=== PATIENT | male | born 1960 | race Caucasian/White ===

== ENCOUNTER → 2020-09-23 | Outpatient (CLI) | payer OTHER ==
[2020-09-23 10:17] LABS: Basophils % (A) 1 %; Eosinophils # (A) 0.2 k/uL (0-0.7); Eosinophils % (A) 3 %; HCT 47.7 % (39.0-53.0); HGB 16.5 gm/dL (13.0-17.5); Lymphocytes # (A) 1.8 k/uL (1.0-4.8); Lymphocytes % (A) 29 %; MCH 31.5 pg (25.0-35.0); MCHC 34.7 g/dL (31.0-37.0); MCV 90.7 fL (80.0-100.0); Mean Platelet Volume 6.9; Monocytes # (A) 0.4 k/uL (0-1.0); Monocytes % (A) 6 %; Neutrophils # (A) 3.7 k/uL (1.3-7.7); Neutrophils % (A) 60 %; Platelet Count 262 k/uL (150-450); RBC 5.26 m/uL (4.30-5.90); RDW 13.5 % (11.5-15.5); WBC 6.2 k/uL (3.8-10.6)
[2020-09-23 10:26] LABS: Potassium 4.8 mmol/L (3.5-5.1)
[2020-09-23 10:28] LABS: Prothrombin Time 11.1 sec (9.0-12.0)
== END | disposition home or self-care (01) ==
LOC: LABPAT 08:33
PROVIDERS: ATTEND Orthopaedic Surgery
DX: Z01.812 Encounter for preprocedural laboratory examination (principal); M17.12 Unilateral primary osteoarthritis, left knee
CPT/HCPCS: 36415; 80051; 85025; 85610; 93005

== ENCOUNTER 2020-10-06 05:56 | Observation (INO) | payer OTHER ==
[2020-09-30 13:35] VITALS: BMI 31.4
--- NOTE | 2020-10-05 20:34 | HP ---
HISTORY AND PHYSICAL DATE OF SURGERY: 10/06/2020 Shon Brian is a 60-year-old gentleman seen with symptomatic left knee osteoarthritis. We discussed options for treatment. He elected to proceed with left total knee arthroplasty. Consent was obtained. PAST MEDICAL HISTORY: Noncontributory. PAST SURGICAL HISTORY: Left knee arthroscopy, herniorrhaphy. DAILY MEDICATIONS: Advil. ALLERGIES: NONE. SOCIAL HISTORY: He denies current tobacco use. PHYSICAL EVALUATION OF THE LEFT KNEE: His range of motion is negative 3/4 to 95. Mild effusion. Tenderness along the medial joint line. Crepitus, medial and patellofemoral compartments and range of motion. Pain with patellofemoral compression. Ligaments stable. Hip rotation without pain. Distal neurovascular exam is intact. RADIOGRAPHS: Radiographs of the left knee reveal severe osteoarthritic changes. IMPRESSION: Left knee osteoarthritis. PLAN: Left total knee arthroplasty. MMODL / IJN: [id number] /
[~2020-10-06 05:56] MED LIST: ACETAMINOPHEN TAB 500 MG TAB PO PRN; DEXAMETHASONE SOD PHOSPHATE 4 MG/ML 1 ML VIAL IV ONE; LACTATED RINGERS 1,000 ML IV SCH; MELOXICAM 7.5 MG TAB PO PRN; MIDAZOLAM 2 MG/2 ML VIAL IV PRN; ONDANSETRON 4 MG/2 ML VIAL IVP ONE; ROPIVACAINE 246.25 MG, EPINEPHrine 0.5 MG, KETOROLAC 30 MG, cloNIDine HCL/PF 80 MCG, WA... MISCELLANE PRN; TRANEXAMIC ACID 1,000 MG in SODIUM CHLORIDE 0.9% 100 ML IVPB PRN
[2020-10-06] MEDS ORDERED: ROPIVACAINE/EPI/CLONIDINE/KET 50 ML SYRINGE MISCELLANE PRN (06:00)
[2020-10-06] MEDS ORDERED: LIDOCAINE 1% (10MG/ML) FOR IV START INTRADERMA ONE (06:35)
[2020-10-06] MEDS ORDERED: ePHEDrine SULFATE/0.9% NACL/PF 50 MG/5 ML SYRINGE IV ONE (07:28)
[2020-10-06] MEDS ORDERED: SODIUM CHLORIDE 0.9% 100 ML BAG ONE (07:28)
[2020-10-06] MEDS ORDERED: TRANEXAMIC ACID 1,000 MG/10 ML VIAL ONE (07:28)
[2020-10-06] MEDS ORDERED: fentaNYL (PF) 50 MCG/ML 2 ML AMP ONE (07:28)
[2020-10-06] MEDS ORDERED: PROPOFOL 10 MG/ML 20 ML VIAL IV ONE (07:28)
[2020-10-06] MEDS ORDERED: SUCCINYLCHOLINE CHLORIDE VIAL 200 MG/10 ML VIAL IV ONE (07:28)
[2020-10-06] MEDS ORDERED: HYDROmorphone (PF) 1 MG/ML ONE (07:28)
[2020-10-06] MEDS ORDERED: LIDOCAINE 1% INJ 10MG/ML (20 ML MDV) ONE (07:28)
[2020-10-06] MEDS ORDERED: MIDAZOLAM 2 MG/2 ML VIAL ONE (07:28)
[2020-10-06] MEDS ORDERED: LACTATED RINGERS 1,000 ML IV ONE (08:17)
[2020-10-06 09:27] LABS: HCT 37.8 % (39.0-53.0); HGB 13.7 gm/dL (13.0-17.5); MCH 32.4 pg (25.0-35.0); MCHC 36.1 g/dL (31.0-37.0); MCV 89.9 fL (80.0-100.0); Mean Platelet Volume 8.6; Platelet Count 266 k/uL (150-450); RBC 4.21 m/uL (4.30-5.90); RDW 13.4 % (11.5-15.5); WBC 10.5 k/uL (3.8-10.6)
[2020-10-06] MEDS ORDERED: HYDROmorphone 1 MG/ML 1 ML SYRINGE IVP PRN (09:34)
[2020-10-06] MEDS ORDERED: ONDANSETRON 4 MG/2 ML VIAL IVP PRN (09:34)
[2020-10-06] MEDS ORDERED: hydrOXYzine pamoate 25 MG CAP PO PRN (09:34)
[2020-10-06] MEDS ORDERED: NALOXONE 0.4 MG/ML 1 ML VIAL IV PRN (09:34)
[2020-10-06] MEDS ORDERED: HYDROmorphone 0.2 MG/1 ML SYRINGE IVP PRN (09:34)
[2020-10-06] MEDS ORDERED: HYDROcodone/APAP 5-325MG 1 EACH TAB PO PRN (09:34)
--- NOTE | 2020-10-06 09:34 | P.OP ---
Date of Procedure: 10/06/20 Preoperative Diagnosis: Left knee osteoarthritis Postoperative Diagnosis: Left knee osteoarthritis Procedure(s) Performed: Left total knee arthroplasty Implants: 1. Depuy attune size 8 left cruciate retaining cemented femur 2. Depuy attune size 8 fixed bearing cemented tibial baseplate 3. Depuy attune size a fixed bearing cruciate retaining 12 mm polyethylene tibial insert 4. Depuy attune 41 mm all polyethylene cemented patella Anesthesia: GETA, regional (Adductor canal catheter), local Surgeon: Wander Garcia Professor Of Chemistry #1: Enrique Hurley Estimated Blood Loss (ml): 120 Pathology: other (Bone) Condition: stable Disposition: PACU Indications for Procedure: 60-year-old gentleman who was seen with symptomatic left knee osteoarthritis. After treatment options were discussed with him, he elected to proceed with t otal knee arthroplasty. Operative Findings: See description of procedure Description of Procedure: Patient was taken to the operative suite after having an adductor canal catheter placed by the department of anesthesia. Patient underwent a roll anesthetic by the department of anesthesia. Patient was given preoperative IV intake antibiotics and TXA. A well-padded tourniquet was placed about the left lower extremity. The lower extremity was then prepped and draped in the normal sterile orthopedic fashion. The extremity was elevated, a tourniquet was insufflated to 300. A standard anterior incision was made sharply through skin. Dissection was taken down through the subcutaneous soft tissues down to the extensor mechanism. A medial arthrotomy was performed, patella was everted and knee was flexed. There was advanced osteoarthritis noted. I introduced my distal intramedullary femoral drill. I then introduced the distal femoral cutting jig. Anthony MARTINEZ secured the cutting jig with 2 pins. I held retractors in position while Anthony MARTINEZ performed the distal femoral resection through the guide area we now removed her distal femoral cutting guide. We now placed our 4-in-1 femoral cutting block and positioned and it was secured with 2 pins by Anthony MARTINEZ while I held the block in position. The distal femoral finishing was now completed. A proximal tibial cutting guide was positioned. I held the guide in the appropriate position with both hands well Anthony MARTINEZ inserted stabilizing pins into the guide. Proximal tibial cut was made. We now placed a trial femoral component into position, along with an appropriate size tibial tray and insert. We now took the knee through range of motion and had full extension good flexion and good overall soft tissue balance noted. The patella was everted and stabilized with 2 towel clips held by Anthony MARTINEZ while I performed a flush with patellar quad tendon utilizing a fresh sawblade. We templated the patella, appropriate drill holes were made. An appropriate trial patella was positioned, knee was taken through full range of motion with the patella tracking very nicely. The trial patella was removed. Drill holes were made through the femoral component. All trial components were removed after marking off the appropriate rotation of the tibia. Retractors were now positioned along the proximal tibia. An appropriate keel punch was made with the appropriate size tibial guide by myself on Anthony MARTINEZ assisted by holding retractors. At this point appropriate size implants were chosen and opened. The joint was irrigated copiously with pulse lavage mechanical irrigation. The posterior capsule was infiltrated with local analgesic. The wound was irrigated with pulse lavage mechanical irrigation. We mixed antibiotic methylmethacrylate. We placed the knee into flexion. We placed multiple retractors assisted by Anthony MARTINEZ to expose the proximal tibia. Once the methyl methacrylate was ready, the tibial component was cemented into place removing any excess methylmethacrylate form by both myself and Anthony MARTINEZ. The femoral component was cemented into place removing the removing any excess methylmethacrylate performed by both myself and Anthony MARTINEZ. We then inserted the appropriate size polyethylene tibial insert. We made sure that it was locked into position. We took the knee into full extension, and then back in a flexion making sure we had removed any excess methylmethacrylate. The patellar component was then cemented down and secured with clamp. Excess methylmethacrylate removed. We kept the knee in full extension, patellar clamp in position until methylmethacrylate had hardened. Once it had hardened the patellar clamp was removed. The knee was taken through full range of motion. The patella tracked nicely. There was good soft tissue balancing. The tourniquet was now released. Additional hemostasis was achieved via electrocautery. There was significant bleeding occurring in we did have to remove the polyethylene component to perform additional cauterization the posterior lateral capsule area where noted a significant amount of bleeding. I was able stabilize it. The polyethylene was reinserted. I used some powder Surgicel throughout the knee to again help with her hemostasis. At this point appeared we had good hemostasis. A second gram of TXA was given. The wound again was irrigated with pulse lavage mechanical irrigation. The superficial soft tissues were infiltrated local analgesic. The extensor mechanism was repaired with Vicryl. We checked the repair with range of motion and it was stable. The subcutaneous soft tissues were repaired with Vicryl in layers. The skin was approximated with pernio/Dermabond. Sterile dressings were applied followed by loose web roll and Konrad bandage. The patient was transferred to a bed, and taken to recovery in stable and satisfactory condition. Anthony MARTINEZ assisted with this complex procedure.
[2020-10-06] MEDS: HYDROmorphone 0.5 MG/0.5 ML SYRINGE IVP PRN ×6 (10:07→23:41)
[2020-10-06] MEDS: hydrALAZINE HCL 20 MG/ML 1 ML VIAL IV ONE ×2 (10:20→10:40)
[2020-10-06] MEDS ORDERED: ROPIVACAINE 0.2%-NS ON-Q PUMP 1,090 MG, EMPTY PAIN BALL 1 EACH MISCELLANE PRN (10:27)
--- NOTE | 2020-10-06 10:27 | P.ANPRN ---
Procedure Note - Anesthesia - Nerve Block Performed Left Adductor Canal Infusion Time Out Performed: Yes Date of Procedure: 10/06/20 Procedure Start Time: 06:49 Procedure Stop Time: 07:04 Location of Patient: PreOp Indication: Acute Post-Operative Pain, Requested by Surgeon Sedation Type: Sedate with meaningful contact maintained Preparation: Sterile Prep, Sterile Dressing Position: Supine Catheter: Indwelling Needle Types: Pajunk Needle Gauge: 21 Ultrasound used to visualize needle placement: Yes Ultrasound used to observe medication spread: Yes Blood Aspirated: No Pain Paresthesia on Injection Noted: No Resistance on Injection: Normal Image Stored and Saved: Yes Events: Uneventful and Well Tolerated (ropi .5% 20cc plus dexamethasone 4mg)
[2020-10-06] MEDS ORDERED: METOPROLOL TARTRATE 5 MG/5 ML VIAL IVP ONE (10:55)
--- NOTE | 2020-10-06 11:02 | XR ---
EXAMINATION TYPE: XR knee limited LT DATE OF EXAM: 10/06/2020 COMPARISON: None HISTORY: Postop knee replacement TECHNIQUE: 2 view left knee FINDINGS: Tibial femoral components in place. Surgical skin bereket are present anteriorly. Postsurgi estrada changes are within soft tissues. No acute fractures or dislocations are evident. IMPRESSION: 1. No acute fractures post knee replacement.
[2020-10-06] MEDS: MEPERIDINE 50 MG/ML SYRINGE IVP ONE ×2 (11:18→11:42)
[2020-10-06 13:20] LABS: Band Neutrophils % 1 %; Lymphocytes # (M) 0.63 k/uL (1.0-4.8); Monocytes # (M) 0.11 k/uL (0-1.0); Neutrophils % (M) 92 %; Nucleated Red Blood Cells 0 /100 WBC (0-0); Total Cells Counted 100
[2020-10-06] MEDS: LACTATED RINGERS 1,000 ML IV SCH ×2 (14:39→20:11)
[2020-10-06] MEDS ORDERED: SENNOSIDES-DOCUSATE SODIUM 1 EACH TAB PO SCH (21:00)
[2020-10-07] MEDS: HYDROcodone/APAP 7.5-325MG 1 EACH TAB PO PRN ×2 (03:58→10:25)
[2020-10-07] MEDS: LACTATED RINGERS 1,000 ML IV SCH ×2 (05:03→07:03)
[2020-10-07] MEDS ORDERED: ENOXAPARIN 30 MG/0.3 ML SYRINGE SQ SCH (06:00)
[2020-10-07 07:33] VITALS: BP 177/99; PULSE 89; RESP 18; TEMP 98
--- NOTE | 2020-10-07 07:38 | P.PN ---
Progress Note - Text 10/07/20 711am 60-year-old male status post total knee replacement by Dr. Brumfield. Patient has an On-Q pump for postop pain control with the solution running at 8 mL an hour with a VAS of 4. His pain score varies with ambulation dressing clean dry and intact. Plan to continue On-Q pump infusion
[2020-10-07 08:52] LABS: Basophils # (A) 0.01 X 10*3/uL (0.00-0.10); Basophils % (A) 0.1 %; Eosinophils # (A) 0.01 X 10*3/uL (0.04-0.35); Eosinophils % (A) 0.1 %; HCT 38.1 % (39.6-50.0); HGB 12.8 g/dL (13.0-17.0); Lymphocytes # (A) 1.08 X 10*3/uL (0.90-5.00); Lymphocytes % (A) 7.4 %; MCH 30.3 pg (27.0-32.0); MCHC 33.6 g/dL (32.0-37.0); MCV 90.3 fL (80.0-97.0); Monocytes # (A) 1.43 X 10*3/uL (0.20-1.00); Monocytes % (A) 9.7 %; Neutrophils # (A) 12.09 X 10*3/uL (1.80-7.70); Neutrophils % (A) 82.2 %; Platelet Count 269 X 10*3/uL (140-440); RBC 4.22 X 10*6/uL (4.40-5.60); RDW 13.3 % (11.5-14.5); WBC 14.69 X 10*3/uL (4.50-10.00)
--- NOTE | 2020-10-07 10:05 | P.PN ---
Subjective Progress Note Date: 10/07/20 Principal diagnosis: Left total knee arthroplasty Status post left total knee arthroplasty Postop-day 1 Upon entering room patient was sitting comfortably in chair next to bed. P atient was resting with legs elevated. Patient says he is feeling well today. Patient has been up and walking with a walker. Patient rates his pain as 6 out of 10, when pain medication wears off. Patient has passed gas, but has not had bowel movement yet patient was about to eat breakfast. Objective - Vital Signs Vital signs: Vital Signs Temp 98.0 F 10/07/20 07:33 Pulse 89 10/07/20 07:33 Resp 18 10/07/20 07:33 BP 177/99 10/07/20 07:33 Pulse Ox 95 10/07/20 07:33 Intake & Output 10/06/20 10/07/20 10/07/20 18:59 06:59 18:59 Intake Total 1850 Output Total 121 Balance 1729 Weight 110 kg Intake: IV 1850 Output: Urine 1 Estimated Blood Loss 120 Other: Voiding Method Toilet # Voids 3 1 # Bowel Movements 0 - Exam : Incision is clean, dry, and intact. The silver foam tape is in good condition. There is minimal soft tissue swelling and ecchymosis surrounding the medial and lateral aspects of the incision. Calf is soft, no tenderness with palpation. Plantar flexion, dorsiflexion, EHL, FHL are intact. Sensory exam to light touch throughout the extremity is intact, dorsal pedis pulses 2+. - Labs CBC & Chem 7: 10/07/20 05:46 Labs: Abnormal Lab Results - Last 24 Hours (Table) 10/06/20 10/07/20 Range/Units 09:14 05:46 WBC 14.69 H (4.50-10.00) X 10*3/uL RBC 4.22 L (4.40-5.60) X 10*6/uL Hgb 12.8 L (13.0-17.0) g/dL Hct 38.1 L (39.6-50.0) % Immature Gran # 0.07 H (0.00-0.04) X 10*3/uL Neutrophils # 12.09 H (1.80-7.70) X 10*3/uL Neutrophils # (Manual) 9.70 H (1.3-7.7) k/uL Lymphocytes # (Manual) 0.63 L (1.0-4.8) k/uL Monocytes # 1.43 H (0.20-1.00) X 10*3/uL Eosinophils # 0.01 L (0.04-0.35) X 10*3/uL Assessment and Plan Assessment: Left total knee arthroplasty Plan: Assessment: Postoperative day 1 status post left total knee arthroplasty Plan: 1. Continue with medical management. 2. Continue with current pain medication [place] 5 mg/325 mg. 3. Continue with physical therapy, including gait/stair training. 4. Continue with aspirin for DVT prophylaxis. 5. Use stool softener as needed 6. Discharge planning. 7. Anticipated discharge [10/07/2020. Time with Patient: Less than 30
--- NOTE | 2020-10-07 10:07 | P.DS ---
Providers Date of admission: 10/06/20 23:55 Expected date of discharge: 10/07/20 Attending physician: Wander Garcia Consults: 10/06/20 09:34 Consult Physician Routine Consulting Provider: Zack Nolasco Consult Reason/Comments: Medical management Do you want consulting provider notified?: Yes Primary care physician: Jt Keenan [place] [facility] Course: Date of admission: 10/06/2020 Date of discharge: 10/07/2020 Admission diagnosis: Left total knee arthroplasty Discharge diagnosis: Same Attending physician: Dr. Garcia Surgical procedures: Left total knee arthroplasty Brief history: Patient is a 60-year-old male with a history of progressive primary left knee osteoarthritis. At this point patient has failed conservative treatment measures and has opted to proceed with a elective left total knee arthroplasty. Hospital course: Details of patient's surgery can be found in operative report. Patient tolerated the procedure well and was subsequently transported to orthopedic floor. Patient's orthopeidc and medical care was provided daily. Patient had daily laboratory tests performed for evaluation of overall blood counts. Patient had daily physical therapy to include strengthening range of motion as well as education with walker ambulation. Patient was treated with Xarelto for their postoperative DVT prophylaxis during their inpatient stay. Patient was noted to have a relatively uneventful postoperative course. Patient reported satisfactory pain control with oral pain medications by postoperative day 1. Patient showed satisfactory progress with physical therapy. Patient moved steadily through the program and had no difficulty meeting the goals by postoperative day 1. Given patient's otherwise satisfactory course and having met physical therapy goals, plan is to discharge patient home on postoperative day 1. Discharge condition/disposition: Patient will be discharged on in stable cond ition. Discharge medications: Instructions are given on resumption of patient's normal daily medications per primary care recommendation, in addition patient will be prescribed [place] 7.5 mg/325 mg, Colace 100 mg, aspirin 81 mg. Discharge instructions: 1. Wound care and infection precautions, keep incision dry and covered while showering, no lotions, creams, moisturizers. No soaking, tubs, pools, hottubs. Do not scrub over the incision. 2. Weight-bear as tolerated with walker / cane until follow-up. 3. Ice and elevate when necessary. Do not exceed 20 minutes per hour with ice pack. 4. Utilize compression sleeve until seen at first follow up appointment. 5. Visiting nursing care. 6. Home physical therapy including home CPM. 7. Pain meds and anticoagulants per prescription. 8. Pain medication has potential to cause constipation. Increase oral fluid and fiber intake. Contact primary care provider if you have not had a bowel movement within 48 hours after discharge 9. No anti-inflammatory medication until discussed at first post operative visit, this including Motrin, Aleve, Mobic, Diclofenac,. 10. Follow up in office at 2 weeks postop with Anthony Hurley PA-C / Daniele Gifford PA-C 11. Follow up with your primary care doctor 7-10 days after discharge. 12. Contact [facility] with any questions, . Assessment: Left total knee arthroplasty Patient Condition at Discharge: Good Plan - Discharge Summary Discharge Rx Participant: Yes New Discharge Prescriptions: New Aspirin [Adult Low Dose Aspirin EC] 81 mg PO BID #60 tablet. Docmickeyte [Colace] 100 mg PO DAILY #30 capsule HYDROcodone/APAP 7.5-325MG [[place] 7.5] 1 each PO Q6HR PRN #42 tab PRN Reason: Pain Ferrous Sulfate [Iron (65 MG Elemental)] 325 mg PO BID #30 tab Discharge Medication List Aspirin [Adult Low Dose Aspirin EC] 81 mg PO BID #60 tablet. 10/07/20 [Rx] Docusate [Colace] 100 mg PO DAILY #30 capsule 10/07/20 [Rx] Ferrous Sulfate [Iron (65 MG Elemental)] 325 mg PO BID #30 tab 10/07/20 [Rx] HYDROcodone/APAP 7.5-325MG [[place] 7.5] 1 each PO Q6HR PRN #42 tab 10/07/20 [Rx] Follow up Appointment(s)/Referral(s): Enrique Hurley PAC [PHYSICIAN CREDIT PORTFOLIO MANAGER] - 2 Weeks Activity/Diet/Wound Care/Special Instructions: Orthopedic Discharge Instructions: 1. Wound care and infection precautions, keep incision dry and covered while showering, no lotions, creams, moisturizers. No soaking, pools, hot tubs. Do not scrub over incision. 2. Weight-bear as tolerated with walker / cane until follow-up. 3. Ice and elevate when necessary. Do not exceed 20 minutes per hour with ice pack. 4. Utilize compression sleeve until seen at first follow up appointment. 5. Pain meds and anticoagulants per prescription. 6. Pain medication has potential to cause constipation. Increase oral fluid and fiber intake. Contact primary care provider if you have not had a bowel movement within 48 hours after discharge. 7. No anti-inflammatory medication until discussed at first post operative visit, this including Motrin, Aleve, Mobic, Diclofenac, . 8. Follow up in office at 2 weeks postop with Anthony Hurley PA-C / Dainele Gifford PA-C 9. Follow up with your primary care doctor 7-10 days after discharge. 10. Contact [facility] with any questions, . Keep silver foam dressing on for 7 days. wrap foam dressing in plastic bag or Saran wrap while showering. Foam dressing may be removed after 7 days Discharge Disposition: HOME WITH HOME HEALTH SERVICES
[2020-10-07] MEDS ORDERED: LISINOPRIL-HCTZ 10-12.5 MG 1 EACH TAB PO STA (11:19)
--- NOTE | 2020-10-07 21:35 | P.CONS ---
History of Present Illness - Reason for Consult Consult date: 10/07/20 Medical management Requesting physician: Wander Garcia - Chief Complaint Left knee surgery - History of Present Illness Consultation: This is a very pleasant 60-year-old patient of Dr. Mclaughlin. Patient has been remarkable good health. He has had progressive symptoms of arthritis in the left knee. Ordered repeat her diet. Getting worse. Worse with activity. Better with resting. Patient's tried different conservative measures. It is somewhat localized to the left knee. Finally decision was made to proceed with surgical repair. Patient is undergone left total knee arthroplasty. This morning feeling better. Pain is controlled. No nausea vomiting. Did tolerate his breakfast. No chest pain or shortness of breath. Patient noted to have blood pressure running on the higher side. Does not know what it normally runs. Review of systems: GEN.: None EYES: None HEENT: None NECK: None RESPIRATORY: None CARDIOVASCULAR: None GASTROINTESTINAL: None GENITOURINARY: None MUSCULOSKELETAL: Joint pains including right ankle from previous fractures] LYMPHATICS: None HEMATOLOGICAL: None PSYCHIATRY: None NEUROLOGICAL: None Past medical history to include: Arthritis Social history: Lives alone. Does construction work. Does not smoke. Alcohol occasionally. Family history: Reviewed, noncontributory to presentation Physical examination: VITAL SIGNS: 98, 89, 18, 1 77 x 99, 95% room air GENERAL: BMI 31.1, sitting up, comfortable. EYES: Pupils equal. Conjunctiva normal. HEENT: External appearance of nose and ears normal, oral cavity grossly normal. NECK: JVD not raised; masses not palpable. HEART: First and second heart sounds are normal; no edema. LUNGS: Respiratory rate normal; clear to auscultation. ABDOMEN: Soft, nontender, liver spleen not palpable, no masses palpable. PSYCH: Alert and oriented x3; mood and affect normal MUSCULAR skeletal: Dressing over the left knee. NEUROLOGICAL: Cranial nerves grossly intact; no facial asymmetry, power and sensation grossly intact. LYMPHATICS: No lymph nodes palpable in the axilla and neck INVESTIGATIONS, reviewed in the clinical context: WBC 14.6 hemoglobin 12.8 platelets 269 Assessment and plan: -Left total knee arthroplasty. Pain control. On aspirin for DVT prophylaxis -Primary osteoarthritis -Essential hypertension, uncontrolled, new diagnosis. We'll start the patient on lisinopril hydromorphone thiazide. 10/12.5. Patient educated to check his blood pressure every morning and follow-up as his PCP. Patient to follow-up with his family doctor. Care was discussed Thank you Dr. Pena Past Medical History Past Medical History: No Reported History History of Any Multi-Drug Resistant Organisms: None Reported Past Surgical History: Hernia Repair Additional Past Surgical History / Comment(s): arthroscopy lt knee, hernia surgery Past Anesthesia/Blood Transfusion Reactions: No Reported Reaction Past Psychological History: No Psychological Hx Reported Smoking Status: Never smoker Past Alcohol Use History: Occasional Past Drug Use History: None Reported - Past Family History Mother Family Medical History: No Reported History Medications and Allergies Home Medications Medication Instructions Recorded Confirmed Type Aspirin [Adult Low Dose Aspirin EC] 81 mg PO BID #60 tablet. 10/07/20 Rx Docusate [Colace] 100 mg PO DAILY #30 capsule 10/07/20 Rx Ferrous Sulfate [Iron (65 MG 325 mg PO BID #30 tab 10/07/20 Rx Elemental)] HYDROcodone/APAP 7.5-325MG [[facility] 1 each PO Q6HR PRN #42 tab 10/07/20 Rx 7.5] Lisinopril-Hctz 10-12.5 mg 1 each PO HS #30 tab 10/07/20 Rx [Zestoretic 10-12.5] Allergies Allergy/AdvReac Type Severity Reaction Status Date / Time No Known Allergies Allergy Verified 10/06/20 06:27 Physical Exam Vitals: Vital Signs Temp Pulse Resp BP BP Pulse Ox 10/07/20 07:33 98.0 F 89 18 177/99 95 10/07/20 02:25 97.7 F 95 17 168/72 94 L 10/06/20 19:40 16 10/06/20 19:15 97.9 F 90 16 160/79 92 L 10/06/20 14:51 97.1 F L 77 17 144/80 93 L 10/06/20 14:30 75 16 152/83 96 10/06/20 13:32 71 16 149/83 96 10/06/20 13:00 71 16 150/83 94 L 10/06/20 12:30 70 16 156/88 96 10/06/20 12:15 72 16 144/78 96 10/06/20 12:01 68 16 126/81 96 10/06/20 11:46 70 16 146/79 97 03/18/21 11:30 69 16 154/83 97 10/06/20 11:15 69 16 168/86 97 10/06/20 11:00 65 16 177/86 97 10/06/20 10:45 83 16 186/96 97 10/06/20 10:30 82 16 187/101 97 10/06/20 10:15 82 16 188/95 97 Intake and Output 10/06/20 10/07/20 10/07/20 22:59 06:59 14:59 Output Total 1 Balance -1 Output: Urine 1 Other: Voiding Method Toilet # Voids 3 1 # Bowel Movements 0 Results CBC & Chem 7: 10/07/20 05:46 Labs: Abnormal Lab Results - Last 24 Hours (Table) 10/06/20 10/07/20 Range/Units 09:14 05:46 WBC 14.69 H (4.50-10.00) X 10*3/uL RBC 4.22 L (4.40-5.60) X 10*6/uL Hgb 12.8 L (13.0-17.0) g/dL Hct 38.1 L (39.6-50.0) % Immature Gran # 0.07 H (0.00-0.04) X 10*3/uL Neutrophils # 12.09 H (1.80-7.70) X 10*3/uL Neutrophils # (Manual) 9.70 H (1.3-7.7) k/uL Lymphocytes # (Manual) 0.63 L (1.0-4.8) k/uL Monocytes # 1.43 H (0.20-1.00) X 10*3/uL Eosinophils # 0.01 L (0.04-0.35) X 10*3/uL
== END 2020-10-07 13:23 | disposition home health service (06) ==
LOC: OR 05:56 → 4SSUR 09:26 → OR 23:55
PROVIDERS: ADMIT Orthopaedic Surgery; ATTEND Orthopaedic Surgery
DX: M17.12 Unilateral primary osteoarthritis, left knee (principal); I10 Essential (primary) hypertension; Z79.82 Long term (current) use of aspirin; Z79.899 Other long term (current) drug therapy; Z79.891 Long term (current) use of opiate analgesic; E66.9 Obesity, unspecified; Z68.31 Body mass index [BMI] 31.0-31.9, adult
CPT/HCPCS: 27447; 97110; 97161; 64448; 76942; 85025; 85027; 88300; 73560; G0378; C1776; C1713; J2250; J0171; J0330; J0360; J1100; J2175; J0690; J2405; J2001; J3010; J1885; J1650; J1170 ×2; J2795; J2704; J0735